=== PATIENT | male | born 1945 | race Caucasian/White ===

== ENCOUNTER → 2018-11-02 08:32 | Outpatient (CLI) | payer MEDICARE, OTHER, SELFPAY ==
--- NOTE | 2018-11-02 | DI.ECHO.S_ITS ---
[facility]---------+ [facility] +---------+ : : [address] : [place] : : : : [id number] : : : : Phone: [phone]+ Echocardiogram Report + :Name: SUZI ZEPEDA Study Date: 11/02/2018 Height: 68 in : :[facility] Exam Location: IS Weight: 198 lb : : Gender: Male BSA: 2.0 m2 : :: 1945 Age: 73 yrs BP: 139/75 mmHg: :Reason For Study: CAD : :Ordering Physician: Maile Schroeder Performed By: Chantal Page : :Referring: <No Referring Physician Selected> : + Interpretation Summary There is mild concentric left ventricular hypertrophy. The ejection fraction is estimated to be 55-60%. There is mild mitral regurgitation. The aortic valve is moderately calcified. There is moderate to severe aortic stenosis. There has been no significant change since the previous study. The right ventricular systolic pressure is estimated to be at least 30 mmHg based on an estimated right atrial pressure of 3 mm Hg. The ascending aorta is moderately enlarged. Procedure: A two-dimensional transthoracic echocardiogram with color flow and Doppler was performed. The study quality was technically adequate. Comparison is made with the echocardiogram of 11/18/2017. The patient was in sinus bradycardia with heart rates between 45-58 bpm during the exam. The patient had occasional PACs during the exam. Left Ventricle: There is mild concentric left ventricular hypertrophy. The left ventricle is normal in size. The ejection fraction is estimated to be 55- 60%. Left ventricular wall motion is normal. Diastolic parameters suggest a pseudonormalization pattern, consistent with probable elevated filling pressures. Right Ventricle: The right ventricle is borderline dilated. The right ventricular systolic function is normal. Atria: The left atrium is severely dilated. Right atrial size is normal. There is no Doppler evidence for an interatrial shunt. Mitral Valve: The mitral valve leaflets appear borderline thickened, but open well. There is mild to moderate mitral annular calcification. There is mild mitral regurgitation. Aortic Valve: The aortic valve is moderately calcified. The peak aortic velocity is 3.9 m/sec. The peak aortic velocity on the previous exam was 4.0 m/sec. The calculated aortic valve area is 1.3 cm2. The aortic valve mean gradient is 37.1 mmHg. There is moderate to severe aortic stenosis. There has been no significant change since the previous study. There is mild aortic regurgitation. Tricuspid Valve: The tricuspid valve is normal in structure and function. There is trace tricuspid regurgitation. The right ventricular systolic pressure is estimated to be at least 30 mmHg based on an estimated right atrial pressure of 3 mm Hg. Pulmonic Valve: The pulmonic valve is not well seen, but is grossly normal. There is no pulmonic valvular regurgitation. Great Vessels: The aortic root is mildly dilated. The ascending aorta is moderately enlarged. The pulmonary artery is not well visualized, but is probably normal size. The IVC is of normal diameter and collapses greater than 50% with a sniff. This suggests a low right atrial pressure of 3 mm Hg. Pericardium/ Pleura There is no pericardial effusion. There is no pleural effusion. MMode/2D Measurements & Calculations LVIDd: 5.5 cm LVOT diam: 2.5 cm LVIDs: 3.0 cm Ao root diam: 4.0 cm FS: 45.0 % asc Aorta Diam: 4.1 cm EPSS: 1.3 cm IVSd: 1.1 cm LVPWd: 1.1 cm LV horton. diameter/BSA (cm/m^2): 2.7 LV sys. diameter/BSA (cm/m^2): 1.5 LA A2 area: 33.7 cm2 RA long axis: 5.8 cm LA A4 area: 28.6 cm2 RA area: 20.6 cm2 LA length (vol): 5.5 cm RA vol: 61.9 ml LA vol: 149.6 ml RA : 30.4 ml/m2 LA vol index: 73.5 ml/m2 RVD1 (basal): 4.5 cm Doppler Measurements & Calculations Ao V2 max: 385.1 cm/sec LVOT Max Vishal: 104.1 cm/sec Ao V2 mean: 296.2 cm/sec LV V1 max P.3 mmHg Ao max P.3 mmHg LV V1 VTI: 24.5 cm Ao mean P.1 mmHg ALEXANDRA(I,D): 1.3 cm2 Ao V2 VTI: 92.0 cm ALEXANDRA(V,D): 1.4 cm2 sev ratio: 0.27 ALEXANDRA indexed to BSA (cm^2/m^2): 0.66 AI P1/2t: 607.9 msec AI dec slope: 149.4 cm/sec2 MV E max vishal: 90.1 cm/sec TR max vishal: 259.7 cm/sec MV A max vishal: 79.7 cm/sec TR max P.0 mmHg MV E/A: 1.1 PA V2 max: 80.9 cm/sec Med Peak E' Vishal: 6.4 cm/sec PA V2 mean: 60.8 cm/sec E/E' med: 14.1 PA mean P.6 mmHg Lat Peak E' Vishal: 5.5 cm/sec PA Accel Time: 0.09 sec E/E' lat: 16.5 E/e' average: 15.3 MV dec time: 0.25 sec MV P1/2t: 72.8 msec MV P1/2t max vishal: 91.5 cm/sec SV(LVOT): 123.0 ml MVA(P1/2t): 3.0 cm2 Reading Physician:[id number]
== END ==
PROVIDERS: Family Provider Internal Medicine Cardiovascular Disease; PCP Family Medicine; Visit Provider Registered Nurse
DX: I08.0 Rheumatic disorders of both mitral and aortic valves (principal); I25.10 Atherosclerotic heart disease of native coronary artery without angina pectoris; I77.89 Other specified disorders of arteries and arterioles
CPT/HCPCS: 93306

== ENCOUNTER → 2020-04-12 13:25 | Outpatient (CLI) | payer MEDICARE, SELFPAY ==
--- NOTE | 2020-04-12 13:36 | DI.ECHO.S_ITS ---
Echocardiogram Report + + :Name: SUZI ZEPEDA Study Date: 04/12/2020 Height: 68 in : :[facility] Weight: 195 lb : : Gender: Male BSA: 2.0 m2 : :: 1945 Age: 74 yrs BP: 165/77 mmHg: :Reason For Study: Atherosclerotic heart disase : :Ordering Physician: Dr. Mariscal : :Karen Performed By: Jennifer Lakhani : :Referring: CIARA JONES : + + Interpretation Summary Initially, the patient stated that he is not symptomatic. After talking with him further he says he does have some dizziness every now and then with exertion when carrying items up a ramp. He will also get some chest pains when he is riding his bike up hill. He states that he knows his limits and stops for a short time, and then will start again. The ejection fraction is estimated to be 55-60%. The aortic valve is severely calcified. There is severe aortic stenosis. The peak aortic velocity is 4.9 m/sec. Compared to the prior echo study, there has been an increase in the severity of aortic stenosis. There is mild aortic regurgitation. The right ventricular systolic pressure is estimated to be at least 42 mmHg based on an estimated right atrial pressure of 3 mm Hg. Procedure: A two-dimensional transthoracic echocardiogram with color flow and Doppler was performed. The study quality was technically adequate. Comparison is made with the echocardiogram of 11/02/2018. The patient was in sinus bradycardia with heart rates between 44-50 bpm during the exam. Left Ventricle: The left ventricle is normal in size. There is mild-moderate concentric left ventricular hypertrophy. The ejection fraction is estimated to be 55-60%. Left ventricular wall motion is normal. Diastolic parameters suggest a pseudonormalization pattern, consistent with probable elevated filling pressures. Right Ventricle: The right ventricle is normal in size and function. Atria: The left atrium is severely dilated. The right atrium is mildly dilated. Doppler interrogation and injection of saline echo contrast shows no evidence for an interatrial shunt. Mitral Valve: The mitral valve leaflets appear mildly thickened, but open well. There is mild mitral annular calcification. There is mild to moderate mitral regurgitation. Aortic Valve: The aortic valve is severely calcified. There is severe aortic stenosis. The aortic valve mean gradient is 54 mmHg. The peak aortic velocity is 4.9 m/sec. Compared to the prior echo study, there has been an increase in the severity of aortic stenosis. There is mild aortic regurgitation. Tricuspid Valve: The tricuspid valve is normal in structure and function. The right ventricular systolic pressure is estimated to be at least 42 mmHg based on an estimated right atrial pressure of 3 mm Hg. There is mild tricuspid regurgitation. Pulmonic Valve: The pulmonic valve is not well seen, but is grossly normal. There is a trace or physiologic amount of pulmonic regurgitation. Great Vessels: The aortic root is normal size. The ascending aorta is moderately enlarged. The IVC is of normal diameter and collapses greater than 50% with a sniff. This suggests a low right atrial pressure of 3 mm Hg. Pericardium/ Pleura There is no pericardial effusion. There is no pleural effusion. MMode/2D Measurements & Calculations LVIDd: 5.3 cm LVOT diam: 2.3 cm LVIDs: 3.5 cm Ao root diam: 3.5 cm FS: 34.5 % asc Aorta Diam: 4.1 cm EPSS: 1.3 cm Ao Arch Diam (Prox Trans): 3.6 cm IVSd: 1.5 cm LVPWd: 1.4 cm LV horton. diameter/BSA (cm/m^2): 2.6 LV sys. diameter/BSA (cm/m^2): 1.7 LA A2 area: 32.6 cm2 RA long axis: 5.8 cm LA A4 area: 30.1 cm2 RA area: 22.1 cm2 LA length (vol): 6.1 cm RA vol: 71.9 ml LA vol: 136.6 ml RA : 35.6 ml/m2 LA vol index: 67.6 ml/m2 IVC diam: 1.9 cm RVD1 (basal): 3.9 cm TAPSE: 2.9 cm Doppler Measurements & Calculations Ao V2 max: 492.8 cm/sec LVOT Max Vishal: 106.3 cm/sec Ao V2 mean: 346.8 cm/sec LV V1 max P.5 mmHg Ao max P.2 mmHg LV V1 VTI: 29.3 cm Ao mean P.8 mmHg ALEXANDRA(I,D): 0.96 cm2 Ao V2 VTI: 125.8 cm ALEXANDRA(V,D): 0.89 cm2 sev ratio: 0.23 ALEXANDRA indexed to BSA (cm^2/m^2): 0.47 MV E max vishal: 115.5 cm/sec TR max vishal: 312.5 cm/sec MV A max vishal: 75.7 cm/sec TR max P.1 mmHg MV E/A: 1.5 PA V2 max: 84.1 cm/sec Med Peak E' Vishal: 6.4 cm/sec PA V2 mean: 57.9 cm/sec E/E' med: 17.9 PA mean P.5 mmHg Lat Peak E' Vishal: 6.3 cm/sec PA pr(Accel): 12.2 mmHg E/E' lat: 18.2 E/e' average: 18.1 MV dec time: 0.25 sec MVA(VTI): 3.1 cm2 MV V2 mean: 69.8 cm/sec SV(LVOT): 120.7 ml MV mean P.6 mmHg MV V2 VTI: 38.5 cm Reading Physician:01:29 PM
== END ==
PROVIDERS: Family Provider Internal Medicine Cardiovascular Disease; PCP Family Medicine; Referring Provider Family Medicine; Visit Provider Internal Medicine Cardiovascular Disease
DX: I08.3 Combined rheumatic disorders of mitral, aortic and tricuspid valves (principal); I77.89 Other specified disorders of arteries and arterioles; I25.10 Atherosclerotic heart disease of native coronary artery without angina pectoris
CPT/HCPCS: 93306

== ENCOUNTER → 2020-09-13 07:44 | Outpatient (CLI) | payer MEDICARE, SELFPAY ==
[2020-09-13] MEDS: COVID-19 VACC #1, MRNA(MOD) 100 MCG/0.5 ML VIAL IM (07:52)
== END ==
PROVIDERS: Family Provider Internal Medicine Cardiovascular Disease; Visit Provider Internal Medicine
DX: Z23 Encounter for immunization (principal)
CPT/HCPCS: 0011A; 91301

== ENCOUNTER → 2020-10-11 07:32 | Outpatient (CLI) | payer MEDICARE, SELFPAY ==
[2020-10-11] MEDS: COVID-19 VACC #2, MRNA(MOD) 100 MCG/0.5 ML VIAL IM (07:42)
== END ==
PROVIDERS: Family Provider Internal Medicine Cardiovascular Disease; Visit Provider Internal Medicine
DX: Z23 Encounter for immunization (principal)
CPT/HCPCS: 0012A; 91301

== ENCOUNTER → 2021-02-15 07:46 | Outpatient (CLI) | payer MEDICARE, SELFPAY ==
--- NOTE | 2021-02-15 07:49 | DI.ECHO.S_ITS ---
[facility]---------+ [facility] +---------+ : : [address] : [address] : [place] [address] : : : : [id number] : : : : Phone: [phone]+ Echocardiogram Report + + :Name: SUZI ZEPEDA Study Date: 02/15/2021 Height: 68 in : :[facility] ReadingLocation: Weight: 193 lb : : Gender: Male BSA: 2.0 m2 : :: 1945 Age: 75 yrs BP: 152/82 mmHg: :Reason For Study: PROSTHETIC HEART VALVE : :Ordering Physician: CAREY, : :CIARA Performed By: Jennifer Lakhani : :Referring: CIARA JONES : + + Interpretation Summary The right ventricle is borderline dilated. The left atrium is severely dilated. The right atrium is moderately dilated. There is mild to moderate mitral regurgitation. There is a prosthetic aortic valve.-Mark meza There is probable normal prosthetic aortic valve function. There is mild to moderate tricuspid regurgitation. The right ventricular systolic pressure is estimated to be at least 31 mmHg based on an estimated right atrial pressure of 3 mm Hg. Procedure: A two-dimensional transthoracic echocardiogram with color flow and Doppler was performed. The study quality was technically adequate. Comparison is made with the echocardiogram of 04/12/2020. The heart rate ranged between 47-65 bpm during the study. Left Ventricle: The left ventricle is normal in size and wall thickness. The ejection fraction is estimated to be 50-55%. Left ventricular wall motion is normal. Right Ventricle: The right ventricle is borderline dilated. The right ventricular systolic function is normal. Atria: The left atrium is severely dilated. The right atrium is moderately dilated. There is no Doppler evidence for an interatrial shunt. Mitral Valve: The mitral valve leaflets appear mildly thickened, but open well. There is mild mitral annular calcification. There is mild to moderate mitral regurgitation. There are multiple regurgitant jets present. Aortic Valve: There is a prosthetic aortic valve. There is probable normal prosthetic aortic valve function. The peak aortic velocity is 2.1 m/sec. The aortic valve mean gradient is 9 mmHg. The calculated aortic valve area is 2.0 cm2. Tricuspid Valve: The tricuspid valve is normal in structure and function. There is mild to moderate tricuspid regurgitation. The right ventricular systolic pressure is estimated to be at least 31 mmHg based on an estimated right atrial pressure of 3 mm Hg. Pulmonic Valve: The pulmonic valve leaflets are thin and pliable; valve motion is normal. There is trace pulmonic regurgitation. Great Vessels: The ascending aorta is moderately enlarged. The IVC is of normal diameter and collapses greater than 50% with a sniff. This suggests a low right atrial pressure of 3 mm Hg. Pericardium/ Pleura There is no pericardial effusion. There is no pleural effusion. MMode/2D Measurements & Calculations LVIDd: 5.8 cm LVOT diam: 2.1 cm LVIDs: 3.7 cm asc Aorta Diam: 4.2 cm FS: 35.6 % Ao Arch Diam (Prox Trans): 3.6 cm EPSS: 1.3 cm IVSd: 0.90 cm LVPWd: 1.0 cm LV horton. diameter/BSA (cm/m^2): 2.9 LV sys. diameter/BSA (cm/m^2): 1.9 LA A2 area: 31.3 cm2 RA long axis: 5.9 cm LA A4 area: 27.1 cm2 RA area: 23.7 cm2 LA length (vol): 5.7 cm RA vol: 81.2 ml LA vol: 125.8 ml RA : 40.3 ml/m2 LA vol index: 62.5 ml/m2 IVC diam: 1.3 cm RVD1 (basal): 4.1 cm TAPSE: 1.9 cm Doppler Measurements & Calculations Ao V2 max: 211.1 cm/sec LVOT Max Vishal: 127.2 cm/sec Ao V2 mean: 143.2 cm/sec LV V1 max P.6 mmHg Ao max P.8 mmHg LV V1 VTI: 27.3 cm Ao mean P.4 mmHg ALEXANDRA(I,D): 1.8 cm2 Ao V2 VTI: 51.9 cm ALEXANDRA(V,D): 2.0 cm2 sev ratio: 0.52 ALEXANDRA indexed to BSA (cm^2/m^2): 0.88 MV E max vishal: 125.1 cm/sec TR max vishal: 262.1 cm/sec MV A max vishal: 96.4 cm/sec TR max P.9 mmHg MV E/A: 1.3 PA V2 max: 123.3 cm/sec Med Peak E' Vishal: 5.9 cm/sec PA V2 mean: 75.2 cm/sec E/E' med: 21.2 PA mean P.6 mmHg Lat Peak E' Vishal: 9.2 cm/sec PA pr(Accel): 46.5 mmHg E/E' lat: 13.7 E/e' average: 17.4 MV dec time: 0.28 sec SV(OT): 92.0 ml Reading Physician:12:12 PM
== END ==
PROVIDERS: Family Provider Internal Medicine Cardiovascular Disease; PCP Student in an Organized Health Care Education/Training Program; Referring Provider Internal Medicine Cardiovascular Disease; Visit Provider Internal Medicine Cardiovascular Disease
DX: I08.1 Rheumatic disorders of both mitral and tricuspid valves (principal); I77.89 Other specified disorders of arteries and arterioles; Z95.2 Presence of prosthetic heart valve
CPT/HCPCS: 93306

== ENCOUNTER → 2024-01-21 08:53 | Outpatient (CLI) | payer MEDICARE, SELFPAY ==
[2024-01-21 10:20] LABS: Hematocrit 37.9 % (41-53); Hemoglobin 13.3 g/dL (13.5-17.5); Mean Corpuscular HGB Conc 35.1 % (30-36); Mean Corpuscular Hemoglobin 32.6 PG (26-34); Mean Corpuscular Volume 92.7 fL (80-100); Platelet Count 146 X10^3/uL (150-400); Red Blood Cell Count 4.09 X10^6/uL (4.5-5.9); Red Cell Distribution Width 14.2 % (11.6-14.8); White Blood Cell Count 6.6 X10^3/uL (4.5-11.0)
[2024-01-21 10:56] LABS: Alanine Aminotransferase 18 IU/L (<50); Albumin 4.3 g/dL (3.5-5.0); Albumin Globulin Ratio 1.6 (1.0-2.8); Alkaline Phosphatase 71 U/L (38-126); Aspartate Aminotransferase 28 IU/L (17-59); BUN Creatinine Ratio 29.9 (6-22); Bilirubin Total 0.9 mg/dL (0.2-1.3); Blood Urea Nitrogen 44 mg/dL (9-20); Calcium 9.1 mg/dL (8.4-10.2); Carbon Dioxide 29 mmol/L (22-32); Chloride 103 mmol/L (98-107); Cholesterol 143 mg/dL (140-199); Estimated Glomerular Filt Rate 48 mL/min (>60); Globulin 2.7 g/dL (1.7-4.1); Glucose 107 mg/dL (80-110); HDL Cholesterol 39 mg/dL (40-60); HEMOLYSIS < 15 (0-50); LDL Cholesterol Calculated 82 mg/dL (<100); Potassium 4.5 mmol/L (3.4-5.1); Sodium 139 mmol/L (137-145); Triglycerides 110 mg/dL (35-150)
[2024-01-22 16:53] LABS: Hep C Virus Ab w/Reflex Quant NEGATIVE s/c (NEGATIVE)
== END ==
PROVIDERS: Family Provider Internal Medicine Cardiovascular Disease; PCP Family Medicine; Referring Provider Family Medicine; Visit Provider Family Medicine
DX: Z00.00 Encounter for general adult medical examination without abnormal findings (principal); I48.0 Paroxysmal atrial fibrillation; I25.10 Atherosclerotic heart disease of native coronary artery without angina pectoris; I10 Essential (primary) hypertension; E78.5 Hyperlipidemia, unspecified; M10.9 Gout, unspecified; D64.9 Anemia, unspecified
CPT/HCPCS: 36415; 80053; 80061; 85027; 86803

== ENCOUNTER → 2025-01-26 09:45 | Outpatient (CLI) | payer MEDICARE, SELFPAY ==
[2025-01-26 10:14] LABS: Hematocrit 35.7 % (41-53); Hemoglobin 12.6 g/dL (13.5-17.5); Mean Corpuscular HGB Conc 35.2 % (30-36); Mean Corpuscular Hemoglobin 32.7 PG (26-34); Platelet Count 154 X10^3/uL (150-400); Red Blood Cell Count 3.84 X10^6/uL (4.5-5.9); White Blood Cell Count 5.1 X10^3/uL (4.5-11.0)
[2025-01-26 10:33] LABS: Alanine Aminotransferase 18 IU/L (<50); Albumin 4.3 g/dL (3.5-5.0); Albumin Globulin Ratio 1.5 (1.0-2.8); Alkaline Phosphatase 73 U/L (38-126); Aspartate Aminotransferase 28 IU/L (17-59); BUN Creatinine Ratio 40.7 (6-22); Bilirubin Total 0.8 mg/dL (0.2-1.3); Blood Urea Nitrogen 55 mg/dL (9-20); Calcium 8.8 mg/dL (8.4-10.2); Carbon Dioxide 27 mmol/L (22-32); Chloride 105 mmol/L (98-107); Cholesterol 148 mg/dL (140-199); Estimated Glomerular Filt Rate 53 mL/min (>60); Globulin 2.8 g/dL (1.7-4.1); Glucose 101 mg/dL (70-99); HDL Cholesterol 34 mg/dL (40-60); HEMOLYSIS < 15 (0-50); LDL Cholesterol Calculated 89 mg/dL (<100); Potassium 4.2 mmol/L (3.4-5.1); Sodium 140 mmol/L (137-145); Total Protein 7.1 g/dL (6.3-8.2); Triglycerides 127 mg/dL (35-150); Uric Acid 7.7 mg/dL (3.5-8.5)
== END ==
LOC: LAB 09:46
PROVIDERS: PCP Family Medicine; Referring Provider Family Medicine; Visit Provider Family Medicine
DX: Z00.00 Encounter for general adult medical examination without abnormal findings (principal); I48.0 Paroxysmal atrial fibrillation; E78.5 Hyperlipidemia, unspecified; H93.19 Tinnitus, unspecified ear; M10.9 Gout, unspecified; I10 Essential (primary) hypertension; I25.10 Atherosclerotic heart disease of native coronary artery without angina pectoris; Z95.2 Presence of prosthetic heart valve
CPT/HCPCS: 36415; 80053; 80061; 84550; 85027

== ENCOUNTER → 2025-06-16 08:45 | Outpatient (CLI) | payer MEDICARE, SELFPAY ==
[2025-06-16 10:14] LABS: Blood Urea Nitrogen 45 mg/dL (9-20); Calcium 9.2 mg/dL (8.4-10.2); Carbon Dioxide 25 mmol/L (22-32); Chloride 105 mmol/L (98-107); Estimated Glomerular Filt Rate 57 mL/min (>60); Glucose 106 mg/dL (70-99); HEMOLYSIS < 15 (0-50); Potassium 4.3 mmol/L (3.4-5.1); Sodium 139 mmol/L (137-145)
== END ==
PROVIDERS: PCP Family Medicine; Referring Provider Family Medicine; Visit Provider Family Medicine
DX: N18.30 Chronic kidney disease, stage 3 unspecified (principal); I48.0 Paroxysmal atrial fibrillation
CPT/HCPCS: 36415; 80048